=== PATIENT | female | born 1960 | race Two or more races ===

== ENCOUNTER 2018-01-08 09:30 | Outpatient (CLI) | payer OTHER | END 2018-01-08 09:36 | disposition home or self-care (01) | LOC: RAD 501 09:30 | DX: M25.571 Pain in right ankle and joints of right foot (principal) ==

== ENCOUNTER 2019-05-20 21:04 | Emergency (ER) | payer OTHER ==
[~2019-05-20] VITALS: Ht 154.9 cm; Wt 56.7 kg
[2019-05-20] MEDS ORDERED: LIPITOR20 MG (21:33)
== END 2019-05-21 03:09 | disposition home or self-care (01) ==
LOC: ER 21:04 → CPU-OBS 21:41 → ER 21:41
DX: R07.89 Other chest pain (principal)
CPT/HCPCS: G0378; G0379; 93005

== ENCOUNTER → 2022-05-04 | Outpatient (CLI) | payer OTHER ==
[~2022-05-04] MED LIST: LIPITOR20 MG
== END | disposition home or self-care (01) ==
LOC: RAD 13:46
PROVIDERS: ATTEND Orthopaedic Surgery
DX: M25.562 Pain in left knee (principal)

== ENCOUNTER 2022-09-19 08:14 | Outpatient (CLI) | payer OTHER | END 2022-09-19 08:30 | disposition home or self-care (01) | LOC: MRI 08:14 | PROVIDERS: ATTEND Orthopaedic Surgery | DX: M25.562 Pain in left knee (principal); M23.92 Unspecified internal derangement of left knee | CPT/HCPCS: 73718 ==

== ENCOUNTER 2022-09-19 10:38 | Outpatient (CLI) | payer OTHER | END 2022-09-19 10:39 | disposition home or self-care (01) | LOC: NUCLEAR 10:38 | PROVIDERS: ATTEND Orthopaedic Surgery | DX: M81.0 Age-related osteoporosis without current pathological fracture (principal); Z88.6 Allergy status to analgesic agent ==